=== PATIENT | female | born 1960 | race Two or more races ===

== ENCOUNTER → 2019-03-07 | Outpatient (CLI) | payer OTHER | END | disposition home or self-care (01) | LOC: NUCLEAR 10:00 | DX: I70.244 Atherosclerosis of native arteries of left leg with ulceration of heel and midfoot (principal) ==

== ENCOUNTER 2019-03-08 08:34 | Outpatient (CLI) | payer OTHER | END 2019-03-08 08:37 | disposition home or self-care (01) | LOC: NUCLEAR 08:34 | DX: I87.2 Venous insufficiency (chronic) (peripheral) (principal) ==

== ENCOUNTER 2019-07-05 16:44 | Inpatient (IN) | payer OTHER ==
[~2019-07-05] VITALS: Ht 162.6 cm; Wt 70.3 kg
[2019-07-05] MEDS ORDERED: DIGOX125 MCG PO (17:34)
[2019-07-05] MEDS ORDERED: ISOSORBIDE MONO60 MG PO (17:34)
[2019-07-05] MEDS ORDERED: CLOPIDOGREL BIS75 MG PO (17:34)
[2019-07-05] MEDS ORDERED: GABAPENTIN300 MG PO (17:35)
[2019-07-05] MEDS ORDERED: ALDACTONE25 MG PO (17:35)
[2019-07-05] MEDS ORDERED: NORVASC5 MG PO (17:36)
[2019-07-05] MEDS ORDERED: SYNTHROID50 MCG PO (17:36)
[2019-07-05] MEDS ORDERED: IRON325 MG PO (17:37)
[2019-07-05] MEDS ORDERED: FOLIC ACID1 MG PO (17:37)
[2019-07-05] MEDS ORDERED: HUMULIN 70100 UNIT/1 SQ (17:37)
[2019-07-05] MEDS ORDERED: LIPITOR80 MG PO (17:38)
[2019-07-05] MEDS ORDERED: ABATINEX680 MG PO (17:38)
[2019-07-05] MEDS ORDERED: PROTONIX40 MG PO (17:38)
[2019-07-05] MEDS ORDERED: MONTELUKAST SOD10 MG PO (17:39)
[2019-07-05] MEDS ORDERED: CLARITIN10 M1 PO (17:39)
[2019-07-05] MEDS ORDERED: ZANTAC150 M3 PO (17:39)
== END 2019-07-14 18:19 | disposition home or self-care (01) | DRG 74 ==
LOC: ER 16:44 → SEC-K 07-06 13:27 → MEDJ 07-06 13:27
PROVIDERS: ADMIT Internal Medicine
PROC: 02HV33Z Insertion of Infusion Device into Superior Vena Cava, Percutaneous Approach (ICD-10-PCS; principal; 2019-07-06)
PROC: 30233N1 Transfusion of Nonautologous Red Blood Cells into Peripheral Vein, Percutaneous Approach (ICD-10-PCS; 2019-07-07)
PROC: BQ3LZZZ Magnetic Resonance Imaging (MRI) of Right Foot (ICD-10-PCS; 2019-07-07)
PROC: B44HZZZ Ultrasonography of Bilateral Lower Extremity Arteries (ICD-10-PCS; 2019-07-08)
DX: E11.610 Type 2 diabetes mellitus with diabetic neuropathic arthropathy (principal); L97.528 Non-pressure chronic ulcer of other part of left foot with other specified severity; I13.0 Hypertensive heart and chronic kidney disease with heart failure and stage 1 through stage 4 chronic kidney disease, or unspecified chronic kidney disease; E11.621 Type 2 diabetes mellitus with foot ulcer; E78.49 Other hyperlipidemia; N18.9 Chronic kidney disease, unspecified; I50.9 Heart failure, unspecified; I25.10 Atherosclerotic heart disease of native coronary artery without angina pectoris; E87.5 Hyperkalemia; E03.8 Other specified hypothyroidism; D63.1 Anemia in chronic kidney disease

== ENCOUNTER 2019-08-02 11:15 | Inpatient (IN) | payer OTHER ==
[~2019-08-02] VITALS: Ht 162.6 cm; Wt 68.0 kg
[~2019-08-02 11:15] MED LIST: ABATINEX680 MG PO; ALDACTONE25 MG PO; CLARITIN10 M1 PO; CLOPIDOGREL BIS75 MG PO; DIGOX125 MCG PO; FOLIC ACID1 MG PO; GABAPENTIN300 MG PO; HUMULIN 70100 UNIT/1 SQ; IRON325 MG PO; ISOSORBIDE MONO60 MG PO; LIPITOR80 MG PO; MONTELUKAST SOD10 MG PO; NORVASC5 MG PO; PROTONIX40 MG PO; SYNTHROID50 MCG PO; ZANTAC150 M3 PO
[2019-08-02] MEDS ORDERED: SYNTHROID75 MCG (11:30)
--- NOTE | 2019-08-02 11:31 | NUR ---
SE RECIBE PTE ALERTA Y ORIENTADA X3,ES REFERIDA POR EL POR DIARREAS,PTE REFIERE QUE LAS TIENE HACEN MCMULLEN,HOY TUVO 3 EPISODIOS.
--- NOTE | 2019-08-02 12:31 | NUR ---
SE ORIENTA PTE SORBE EL TRATAMIENTO ORDENADO POR EL DR MORAN PTE ALERTA Y CONCIENTE POR 3 RN M.RICE REALIZAN MUESTRAS DE LABORTORIO Y ADMINISTRAN MEDICAMENTO GRANT ORDENADO PTE SE MANTIENE EN OBSERVACION Y BAJO TRATAMIENTO.
[2019-08-17] MEDS ORDERED: DELZICOL400 M1 PO (10:09)
== END 2019-08-17 14:21 | disposition home or self-care (01) | DRG 372 ==
LOC: ER 11:15 → SURH 19:56 → SEC-K 19:56 → SURH 23:26
PROVIDERS: ADMIT Internal Medicine
PROC: 02HV33Z Insertion of Infusion Device into Superior Vena Cava, Percutaneous Approach (ICD-10-PCS; 2019-08-04)
PROC: 3E0336Z Introduction of Nutritional Substance into Peripheral Vein, Percutaneous Approach (ICD-10-PCS; 2019-08-06)
PROC: BW21Y0Z Computerized Tomography (CT Scan) of Abdomen and Pelvis using Other Contrast, Unenhanced and Enhanced (ICD-10-PCS; 2019-08-07)
PROC: 30233N1 Transfusion of Nonautologous Red Blood Cells into Peripheral Vein, Percutaneous Approach (ICD-10-PCS; 2019-08-10)
PROC: 0DBN8ZX Excision of Sigmoid Colon, Via Natural or Artificial Opening Endoscopic, Diagnostic (ICD-10-PCS; principal; 2019-08-11)
PROC: 8E0ZXY6 Isolation (ICD-10-PCS; 2019-08-13)
DX: A04.72 Enterocolitis due to Clostridium difficile, not specified as recurrent (principal); N17.8 Other acute kidney failure; I13.0 Hypertensive heart and chronic kidney disease with heart failure and stage 1 through stage 4 chronic kidney disease, or unspecified chronic kidney disease; E87.2 Acidosis; D62 Acute posthemorrhagic anemia; K51.811 Other ulcerative colitis with rectal bleeding; K92.1 Melena; L97.423 Non-pressure chronic ulcer of left heel and midfoot with necrosis of muscle; K62.89 Other specified diseases of anus and rectum; E11.22 Type 2 diabetes mellitus with diabetic chronic kidney disease; N18.2 Chronic kidney disease, stage 2 (mild); E11.40 Type 2 diabetes mellitus with diabetic neuropathy, unspecified; E11.621 Type 2 diabetes mellitus with foot ulcer; E87.5 Hyperkalemia; E78.2 Mixed hyperlipidemia; E03.8 Other specified hypothyroidism; D63.1 Anemia in chronic kidney disease; I25.10 Atherosclerotic heart disease of native coronary artery without angina pectoris; B96.1 Klebsiella pneumoniae [K. pneumoniae] as the cause of diseases classified elsewhere; Z79.4 Long term (current) use of insulin

== ENCOUNTER 2019-11-15 10:39 | Inpatient (IN) | payer OTHER ==
[~2019-11-15] VITALS: Ht 162.6 cm; Wt 72.6 kg
[~2019-11-15 10:39] MED LIST changes: +DELZICOL400 M1 PO; +SYNTHROID75 MCG
== END 2019-11-17 18:58 | disposition left against medical advice (07) | DRG 386 ==
LOC: ER 10:39 → MEDJ 18:14 → SURH 18:14 → MEDJ 20:32
PROVIDERS: ADMIT Internal Medicine
PROC: 30233N1 Transfusion of Nonautologous Red Blood Cells into Peripheral Vein, Percutaneous Approach (ICD-10-PCS; principal; 2019-11-15)
DX: K51.811 Other ulcerative colitis with rectal bleeding (principal); K92.1 Melena; I25.810 Atherosclerosis of coronary artery bypass graft(s) without angina pectoris; I50.32 Chronic diastolic (congestive) heart failure; D62 Acute posthemorrhagic anemia; I13.0 Hypertensive heart and chronic kidney disease with heart failure and stage 1 through stage 4 chronic kidney disease, or unspecified chronic kidney disease; N17.8 Other acute kidney failure; L97.422 Non-pressure chronic ulcer of left heel and midfoot with fat layer exposed; A04.71 Enterocolitis due to Clostridium difficile, recurrent; I11.0 Hypertensive heart disease with heart failure; I70.0 Atherosclerosis of aorta; E03.8 Other specified hypothyroidism; E87.5 Hyperkalemia; E11.621 Type 2 diabetes mellitus with foot ulcer; E11.22 Type 2 diabetes mellitus with diabetic chronic kidney disease; N18.2 Chronic kidney disease, stage 2 (mild); R31.29 Other microscopic hematuria; Z79.4 Long term (current) use of insulin

== ENCOUNTER 2020-02-29 16:42 | Emergency (ER) | payer OTHER ==
[~2020-02-29] VITALS: Ht 162.6 cm; Wt 68.9 kg
[2020-02-29] MEDS ORDERED: VITAMIN D310 MC4 (17:08)
[2020-02-29] MEDS ORDERED: PEPCID AC10 MG (17:09)
[2020-02-29] MEDS ORDERED: ZESTRIL5 MG (17:10)
[2020-02-29] MEDS ORDERED: CARVEDILOL25 MG (17:12)
[2020-02-29] MEDS ORDERED: CARVEDILOL ER40 MG (17:13)
[2020-03-01] MEDS ORDERED: KAYEXALATE15 GM/60 M PO (13:56)
== END 2020-03-01 14:31 | disposition home or self-care (01) ==
LOC: ER 16:42
DX: E87.5 Hyperkalemia (principal); E86.0 Dehydration; E11.9 Type 2 diabetes mellitus without complications

== ENCOUNTER 2020-03-23 17:39 | Inpatient (IN) | payer OTHER ==
[~2020-03-23] VITALS: Ht 162.6 cm; Wt 70.3 kg
[~2020-03-23 17:39] MED LIST changes: +CARVEDILOL ER40 MG; +CARVEDILOL25 MG; +KAYEXALATE15 GM/60 M PO; +PEPCID AC10 MG; +VITAMIN D310 MC4; +ZESTRIL5 MG
[2020-03-23] MEDS ORDERED: VITAMIN D350 MC2 (18:05)
[2020-03-23] MEDS ORDERED: PEPCID AC20 MG (18:06)
[2020-03-23] MEDS ORDERED: MESALAMINE800 MG (18:06)
[2020-03-23] MEDS ORDERED: ZESTRIL40 M1 (18:06)
[2020-03-23] MEDS ORDERED: HUMULIN 70100 UNIT/2 (18:07)
[2020-03-23] MEDS ORDERED: ISOSORBIDE MONO60 MG (18:07)
[2020-03-23] MEDS ORDERED: LANOXIN125 MCG (18:07)
[2020-03-23] MEDS ORDERED: CARVEDILOL ER40 MG (18:08)
[2020-03-23] MEDS ORDERED: SYNTHROID75 MCG (18:08)
[2020-06-28] MEDS ORDERED: MULTIVITAMINS1 EAC1 PO (11:11)
[2020-06-28] MEDS ORDERED: DELZICOL400 M1 PO (11:11)
[2020-06-28] MEDS ORDERED: METOPROLOL TART50 MG PO (11:11)
[2020-06-28] MEDS ORDERED: LANOXIN125 MCG PO (11:11)
[2020-06-28] MEDS ORDERED: LEVOTHYROXINE75 MCG PO (11:11)
[2020-06-28] MEDS ORDERED: B Complex CAPSULE PO (11:11)
[2020-06-28] MEDS ORDERED: PROTONIX40 MG PO (11:11)
[2020-06-28] MEDS ORDERED: Neurin-Sl Tablet Sl SL (11:11)
[2020-06-28] MEDS ORDERED: ENALAPRIL MALE2.5 MG PO (11:11)
[2020-06-28] MEDS ORDERED: PEPCID AC20 MG PO (11:11)
[2020-06-28] MEDS ORDERED: ADULT ASPIRIN81 MG PO (11:11)
== END 2020-06-29 17:11 | disposition home health service (06) | DRG 3 ==
LOC: ER 17:39 → ICU-2 03-24 12:02 → ICU 03-24 12:02 → SURH 06-15 18:11
PROVIDERS: Otolaryngology; ADMIT Internal Medicine; ATTEND Internal Medicine
PROC: 30233N1 Transfusion of Nonautologous Red Blood Cells into Peripheral Vein, Percutaneous Approach (ICD-10-PCS; 2020-03-24)
PROC: 02HV33Z Insertion of Infusion Device into Superior Vena Cava, Percutaneous Approach (ICD-10-PCS; 2020-03-24)
PROC: B24BZZZ Ultrasonography of Heart with Aorta (ICD-10-PCS; 2020-03-24)
PROC: 5A1955Z Respiratory Ventilation, Greater than 96 Consecutive Hours (ICD-10-PCS; 2020-03-25)
PROC: 4A033R1 Measurement of Arterial Saturation, Peripheral, Percutaneous Approach (ICD-10-PCS; 2020-03-25)
PROC: 0BH17EZ Insertion of Endotracheal Airway into Trachea, Via Natural or Artificial Opening (ICD-10-PCS; 2020-03-25)
PROC: 02HV33Z Insertion of Infusion Device into Superior Vena Cava, Percutaneous Approach (ICD-10-PCS; 2020-03-25)
PROC: 8E0ZXY6 Isolation (ICD-10-PCS; 2020-03-27)
PROC: B24BZZZ Ultrasonography of Heart with Aorta (ICD-10-PCS; 2020-04-08)
PROC: 6A551Z2 Pheresis of Platelets, Multiple (ICD-10-PCS; 2020-04-13)
PROC: 06HM33Z Insertion of Infusion Device into Right Femoral Vein, Percutaneous Approach (ICD-10-PCS; 2020-04-22)
PROC: 5A1D70Z Performance of Urinary Filtration, Intermittent, Less than 6 Hours Per Day (ICD-10-PCS; 2020-04-22)
PROC: 0HDDXZZ Extraction of Right Lower Arm Skin, External Approach (ICD-10-PCS; 2020-05-06)
PROC: 0JBG0ZZ Excision of Right Lower Arm Subcutaneous Tissue and Fascia, Open Approach (ICD-10-PCS; 2020-05-15)
PROC: 0B110F4 Bypass Trachea to Cutaneous with Tracheostomy Device, Open Approach (ICD-10-PCS; principal; 2020-05-20 10:45)
PROC: B24BZZZ Ultrasonography of Heart with Aorta (ICD-10-PCS; 2020-06-04)
PROC: 4A12X4Z Monitoring of Cardiac Electrical Activity, External Approach (ICD-10-PCS; 2020-06-15)
PROC: 02H633Z Insertion of Infusion Device into Right Atrium, Percutaneous Approach (ICD-10-PCS; 2020-06-18)
PROC: B543ZZA Ultrasonography of Right Jugular Veins, Guidance (ICD-10-PCS; 2020-06-18)
DX: K51.018 Ulcerative (chronic) pancolitis with other complication (principal); T80.211A Bloodstream infection due to central venous catheter, initial encounter; A41.9 Sepsis, unspecified organism; J15.7 Pneumonia due to Mycoplasma pneumoniae; R65.21 Severe sepsis with septic shock; J96.01 Acute respiratory failure with hypoxia; I21.A1 Myocardial infarction type 2; N18.6 End stage renal disease; I50.33 Acute on chronic diastolic (congestive) heart failure; J15.0 Pneumonia due to Klebsiella pneumoniae; N17.9 Acute kidney failure, unspecified; E87.2 Acidosis; E87.0 Hyperosmolality and hypernatremia; K62.5 Hemorrhage of anus and rectum; E87.3 Alkalosis; L02.413 Cutaneous abscess of right upper limb; J98.11 Atelectasis; I13.2 Hypertensive heart and chronic kidney disease with heart failure and with stage 5 chronic kidney disease, or end stage renal disease; A04.72 Enterocolitis due to Clostridium difficile, not specified as recurrent; E86.0 Dehydration; L89.151 Pressure ulcer of sacral region, stage 1; Z79.4 Long term (current) use of insulin; E11.621 Type 2 diabetes mellitus with foot ulcer; L97.519 Non-pressure chronic ulcer of other part of right foot with unspecified severity; E11.65 Type 2 diabetes mellitus with hyperglycemia; Z20.828 Contact with and (suspected) exposure to other viral communicable diseases; E88.09 Other disorders of plasma-protein metabolism, not elsewhere classified; E11.610 Type 2 diabetes mellitus with diabetic neuropathic arthropathy; E66.01 Morbid (severe) obesity due to excess calories; D69.6 Thrombocytopenia, unspecified; Z99.2 Dependence on renal dialysis; E89.0 Postprocedural hypothyroidism; I25.119 Atherosclerotic heart disease of native coronary artery with unspecified angina pectoris; D63.1 Anemia in chronic kidney disease

== ENCOUNTER 2020-07-10 18:58 | Inpatient (IN) | payer OTHER ==
[~2020-07-10] VITALS: Ht 162.6 cm; Wt 54.4 kg
[~2020-07-10 18:58] MED LIST changes: +ADULT ASPIRIN81 MG PO; +B Complex CAPSULE PO; +ENALAPRIL MALE2.5 MG PO; +HUMULIN 70100 UNIT/2; +ISOSORBIDE MONO60 MG; +LANOXIN125 MCG; +LANOXIN125 MCG PO; +LEVOTHYROXINE75 MCG PO; +MESALAMINE800 MG; +METOPROLOL TART50 MG PO; +MULTIVITAMINS1 EAC1 PO; +Neurin-Sl Tablet Sl SL; +PEPCID AC20 MG; +PEPCID AC20 MG PO; +VITAMIN D350 MC2; +ZESTRIL40 M1
[2020-07-16] MEDS ORDERED: B COMPLEX1 EACH (11:53)
[2020-07-16] MEDS ORDERED: ABANEU-SL TABL1 EACH (11:53)
[2020-07-18] MEDS ORDERED: FAMOTIDINE20 MG PO (16:52)
[2020-07-18] MEDS ORDERED: METOPROLOL TART50 MG PO (16:52)
[2020-07-18] MEDS ORDERED: B Complex CAPSULE PO (16:52)
[2020-07-18] MEDS ORDERED: DELZICOL400 M1 PO (16:52)
[2020-07-18] MEDS ORDERED: LEVOTHYROXINE100 MCG PO (16:52)
[2020-07-18] MEDS ORDERED: HYDRALAZINE HCL25 MG PO (16:52)
[2020-07-18] MEDS ORDERED: ST. JOSEPH ASPI81 M2 PO (16:52)
[2020-07-18] MEDS ORDERED: LANOXIN125 MCG PO (16:52)
[2020-07-18] MEDS ORDERED: ISOSORBIDE MONO30 MG PO (16:52)
[2020-07-18] MEDS ORDERED: MULTIVITAMINS1 EAC1 PO (16:52)
[2020-07-18] MEDS ORDERED: LASIX20 MG PO (16:52)
== END 2020-07-18 18:20 | DRG 291 ==
LOC: ER 18:58 → SEC-K 07-11 13:31 → SURH 07-11 13:31 → MEDJ 07-13 10:20
PROVIDERS: ADMIT Internal Medicine; ATTEND Internal Medicine
PROC: 4A033R1 Measurement of Arterial Saturation, Peripheral, Percutaneous Approach (ICD-10-PCS; 2020-07-10)
PROC: 8E0ZXY6 Isolation (ICD-10-PCS; principal; 2020-07-11)
PROC: 3E0F7GC Introduction of Other Therapeutic Substance into Respiratory Tract, Via Natural or Artificial Opening (ICD-10-PCS; 2020-07-11)
PROC: 3E0F7SF Introduction of Other Gas into Respiratory Tract, Via Natural or Artificial Opening (ICD-10-PCS; 2020-07-11)
PROC: 4A12X4Z Monitoring of Cardiac Electrical Activity, External Approach (ICD-10-PCS; 2020-07-11)
DX: I13.0 Hypertensive heart and chronic kidney disease with heart failure and stage 1 through stage 4 chronic kidney disease, or unspecified chronic kidney disease (principal); I50.41 Acute combined systolic (congestive) and diastolic (congestive) heart failure; N17.8 Other acute kidney failure; E87.2 Acidosis; L97.528 Non-pressure chronic ulcer of other part of left foot with other specified severity; L98.498 Non-pressure chronic ulcer of skin of other sites with other specified severity; A04.72 Enterocolitis due to Clostridium difficile, not specified as recurrent; K92.1 Melena; I25.10 Atherosclerotic heart disease of native coronary artery without angina pectoris; E11.22 Type 2 diabetes mellitus with diabetic chronic kidney disease; N18.9 Chronic kidney disease, unspecified; E87.5 Hyperkalemia; R80.8 Other proteinuria; E11.42 Type 2 diabetes mellitus with diabetic polyneuropathy; D63.1 Anemia in chronic kidney disease; E11.621 Type 2 diabetes mellitus with foot ulcer; E03.8 Other specified hypothyroidism; E78.49 Other hyperlipidemia; A08.8 Other specified intestinal infections; K58.0 Irritable bowel syndrome with diarrhea; E86.0 Dehydration; Z20.828 Contact with and (suspected) exposure to other viral communicable diseases; Z93.0 Tracheostomy status

== ENCOUNTER 2020-10-14 15:37 | Emergency (ER) | payer OTHER ==
[~2020-10-14] VITALS: Ht 162.6 cm; Wt 63.5 kg
[~2020-10-14 15:37] MED LIST changes: +ABANEU-SL TABL1 EACH; +B COMPLEX1 EACH; +CARAFATE1 GM PO; +CARVEDILOL25 MG PO; +FAMOTIDINE20 MG PO; +HUMULIN 70100 UNIT/2 SUBCUTANEO; +HYDRALAZINE HCL25 MG PO; +INTEGRA PLUS C1 EACH PO; +INTESTINEX680 M1 PO; +ISOSORBIDE MONO30 MG PO; +LASIX20 MG PO; +LEVOTHYROXINE100 MCG PO; +SODIUM BICARBO325 MG PO; +ST. JOSEPH ASPI81 M2 PO; +VITAMIN B-121000 MCG PO
== END 2020-10-14 22:51 | disposition home or self-care (01) ==
LOC: ER 15:37
DX: E11.621 Type 2 diabetes mellitus with foot ulcer (principal); L89.893 Pressure ulcer of other site, stage 3; L08.89 Other specified local infections of the skin and subcutaneous tissue; R60.0 Localized edema; B95.2 Enterococcus as the cause of diseases classified elsewhere; R77.8 Other specified abnormalities of plasma proteins; Z03.818 Encounter for observation for suspected exposure to other biological agents ruled out; Z74.01 Bed confinement status; Z79.4 Long term (current) use of insulin